=== PATIENT | male | born 1995 | race Two or more races ===

== ENCOUNTER → 2017-01-20 | Outpatient (CLI) | payer OTHER | LOC: M LRY 18:53 | PROVIDERS: ATTEND Nurse Practitioner Family | DX: R10.9 Unspecified abdominal pain (principal) ==

== ENCOUNTER → 2017-01-20 | Outpatient (CLI) | payer OTHER ==
--- NOTE | 2017-01-20 19:19 | REP ---
Clinical: Right flank pain. Technique: Two supine views of the abdomen and pelvis. Findings: No obvious urinary tract calcifications are appreciated. However evaluation is limited due to overlying bowel gas and technique. No evidence for bowel obstruction. No organomegaly. Skeletal structures are intact. No abnormal calcifications or foreign body. Impression: Nonspecific bowel gas pattern. No obvious urinary tract calcifications appreciated. Signed by Abhilash Lew MD 01/20/2017 07:10 P
== END ==
LOC: M LRY 18:56
PROVIDERS: ATTEND Nurse Practitioner Family
DX: R10.9 Unspecified abdominal pain (principal)

== ENCOUNTER → 2017-01-20 | Outpatient (CLI) | payer OTHER | LOC: M LRY 17:07 | PROVIDERS: ATTEND Nurse Practitioner Family | DX: R10.9 Unspecified abdominal pain (principal) ==

== ENCOUNTER 2017-04-11 23:17 | Emergency (ER) | payer OTHER | END 2017-04-12 00:38 | disposition home or self-care (01) | LOC: M ED 23:17 | DX: S60.221A Contusion of right hand, initial encounter (principal); Y04.8XXA Assault by other bodily force, initial encounter; Y92.89 Other specified places as the place of occurrence of the external cause | CPT/HCPCS: 73130 ==